=== PATIENT | male | born 1980 | race Caucasian/White ===

== ENCOUNTER 2021-02-17 07:46 | Emergency (ER) | payer SELFPAY ==
[~2021-02-17] VITALS: Ht 182.9 cm; Wt 73.5 kg
[2021-02-17 07:52] VITALS: BP 141/87
--- NOTE | 2021-02-17 07:56 | NUR ---
PT SENT TO LOBBY
[2021-02-17] MEDS ORDERED: FLUORESCEIN OPTH STRIP 1 MG OP ONE (09:35)
[2021-02-17] MEDS ORDERED: TETRACAINE 1% 2 ML AMP INJ ONE (09:35)
[2021-02-17] MEDS ORDERED: TETRACAINE HCL/PF 0.5% OPTH 4 ML BTL ONE (09:37)
[2021-02-17] MEDS ORDERED: TOMOMETER 1 DEV DEV MC ONE (10:03)
[2021-02-17] MEDS ORDERED: CEPH500T PO (10:07)
[2021-02-17] MEDS ORDERED: IBUP-2213 PO (10:07)
[2021-02-17] MEDS ORDERED: ERYT5OIN51 OP (10:07)
--- NOTE | 2021-02-17 10:22 | NUR ---
PT SEEN AND TREATED BY DR OH, NO NURSING INTERVENTIONS PROVIDED.
--- NOTE | 2021-02-17 10:23 | NUR ---
Patient discharged with v/s stable. Written and verbal after care instructions ABOUT CELLULITIS given and explained. Patient alert, oriented and verbalized understanding of instructions. Ambulatory with steady gait. All questions addressed prior to discharge. ID band removed. Patient advised to follow up with PMD. Rx of KEFLEX, IBUPROFEN, AND ERYTHROMYCIN given. Patient educated on indication of medication including possible reaction and side effects. Opportunity to ask questions provided and answered.
== END 2021-02-17 10:23 | disposition home or self-care (01) ==
LOC: MED 07:46
DX: H57.13 Ocular pain, bilateral (principal); H53.9 Unspecified visual disturbance
CPT/HCPCS: 99283; J3490

== ENCOUNTER 2023-03-22 14:43 | Emergency (ER) | payer MEDICAID ==
[~2023-03-22] VITALS: Ht 172.7 cm; Wt 72.6 kg
[~2023-03-22 14:43] MED LIST: CEPH500T PO; ERYT5OIN51 OP; IBUP-2213 PO
[2023-03-22 15:06] VITALS: BP 125/83; PULSE 101; RESP 18; TEMP 98.5; O2SAT 98
[2023-03-22] MEDS ORDERED: KETOROLAC 30 MG/ML VIAL IM ONE (15:55)
[2023-03-22] MEDS ORDERED: cefTRIAXone 500 MG in LIDOCAINE MPF 1% 1 ML IM ONE ×3 (17:15→18:05)
[2023-03-22 17:18] LABS: APPEARANCE,URINE CLEAR (CLEAR); BILIRUBIN,URINE NEGATIVE (NEGATIVE); BLOOD, URINE NEGATIVE (NEGATIVE); COLOR,URINE YELLOW (YELLOW); LEUKOCYTE ESTERASE ,URINE 1+ (NEGATIVE); NITRITE, URINE NEGATIVE (NEGATIVE); PROTEIN,URINE NEGATIVE (NEGATIVE); UGLUCOSE NEGATIVE (NEGATIVE); UROBILINOGEN,URINE 0.2 EU/dL (0.2 - 1)
[2023-03-22 17:29] LABS: BACTERIA,URINE None Seen /HPF (None Seen); MUCUS,URINE 1+ /LPF (None Seen); RBC,URINE 0-5 /HPF (0-5); SQUAMOUS EPITHELIAL CELL,UR 4-10 (MOD) /LPF (0-3 (FEW)); TRICHOMONAS,URINE None Seen /HPF (None Seen); URINE AMORPHOUS PHOSPHATES 2+ /HPF (None Seen); WBC,URINE 16-25 (MOD) /HPF (0-5); YEAST,URINE None Seen /HPF (None Seen)
[2023-03-22] MEDS ORDERED: IBUP-2213 PO (17:55)
[2023-03-22] MEDS ORDERED: DOXY-745 PO (17:55)
[2023-03-22] MEDS ORDERED: LIDOCAINE MPF 1% 5 ML ONE (18:03)
[2023-03-22] MEDS ORDERED: cefTRIAXone 500 MG VIAL ONE (18:03)
[2023-03-22 18:24] VITALS: BP 125/83; PULSE 99; RESP 18; TEMP 98.5; O2SAT 98
== END 2023-03-22 18:23 | disposition home or self-care (01) ==
LOC: MED 14:43
DX: N45.1 Epididymitis (principal); R03.0 Elevated blood-pressure reading, without diagnosis of hypertension; Z79.899 Other long term (current) drug therapy
CPT/HCPCS: 76870; 81001; 87086; 87491; 96372; 99285; J0696; J1885; J2001; Q0092

== ENCOUNTER 2023-10-28 16:26 | Emergency (ER) | payer SELFPAY ==
[~2023-10-28] VITALS: Ht 182.9 cm; Wt 79.4 kg
[~2023-10-28 16:26] MED LIST changes: +DOXY-22 PO
[2023-10-28 16:46] VITALS: BP 97/60; PULSE 104; RESP 19; TEMP 98.7; O2SAT 91
[2023-10-28] MEDS ORDERED: BACITRACIN OINT 500 UNITS/GM PKT TP ONE (17:09)
[2023-10-28] MEDS ORDERED: DIPH25TA53 PO (17:51)
[2023-10-28] MEDS ORDERED: BACI-418 TP (17:51)
[2023-10-28] MEDS ORDERED: HYDR28CR67 TP (17:51)
[2023-10-28] MEDS: IBUPROFEN 600 MG TAB PO ONE (18:13)
[2023-10-28] MEDS: BACITRACIN OINT 500 UNITS/GM PKT TP ONE (18:20)
[2023-10-28 18:28] VITALS: BP 102/73; PULSE 98; RESP 16; TEMP 98.7; O2SAT 94
== END 2023-10-28 18:28 | disposition home or self-care (01) ==
LOC: MED 16:26
DX: S90.822A Blister (nonthermal), left foot, initial encounter (principal); S90.821A Blister (nonthermal), right foot, initial encounter; S60.411A Abrasion of left index finger, initial encounter; Z79.899 Other long term (current) drug therapy; X58.XXXA Exposure to other specified factors, initial encounter; Y92.89 Other specified places as the place of occurrence of the external cause; Y93.89 Activity, other specified; Y99.8 Other external cause status
CPT/HCPCS: 99282